=== PATIENT | female | born 1990 | race Caucasian/White ===

== ENCOUNTER 2023-02-24 15:47 | Outpatient (CLI) | payer BC | END 2023-02-24 15:48 | disposition home or self-care (01) | LOC: CSHLAB 15:47 | PROVIDERS: ATTEND Obstetrics & Gynecology | DX: Z01.818 Encounter for other preprocedural examination (principal) | CPT/HCPCS: 80048; 84703; 85027; 86850; 86900; 86901; 93005; 93010 ==

== ENCOUNTER 2023-02-28 09:55 | Day surgery (SDC) | payer BC ==
[2023-02-24 17:01] VITALS: BMI 23.9
[2023-02-24 17:41] LABS: BHCG - Serum Negative (NEGATIVE); Pregs Control Background? CLEAR/WHITE (CLR/WHITE); Pregs Control Bar Appear? YES (CONTROL BAR)
[2023-02-24 17:43] LABS: Hematocrit 43.1 % (34.9-44.5); Mean Corpuscular HGB CONC 32.5 g/dL (32.0-36.0); Mean Corpuscular Hemoglobin 29.6 pg (27.0-33.0); Mean Corpuscular Volume 91.1 fl (81.6-98.3); Mean Platelet Volume 9.9 fl (7.4-10.4); Platelet Count 326 10x3/uL (150-450); RBC Distribution Width 12.3 % (11.5-14.5); Red Blood Cell (RBC) Count 4.73 10x6/uL (3.90-5.03)
[2023-02-24 17:48] LABS: Anion Gap 14 mmol/L (10-20); BUN (Urea Nitrogen) 16 mg/dL (7.0-18.7); Calc. Creatinine Clearance 0 mL/min (70-130); Calcium 9.1 mg/dL (7.8-10.44); Carbon Dioxide 25 mmol/L (22-29); Chloride 102 mmol/L (98-107); Estimated GFR 105; Glucose 77 mg/dL (70-105); Potassium 3.9 mmol/L (3.5-5.1); Sodium 137 mmol/L (136-145)
[2023-02-28] MEDS ORDERED: CeleCOXIB 100 MG CAP ONE (10:06)
[2023-02-28] MEDS ORDERED: Lidocaine 2% PF 5 ML VIAL ONE ×2 (10:37→11:51)
[2023-02-28] MEDS ORDERED: PROPOFOL 20 ML ONE (10:37)
[2023-02-28] MEDS ORDERED: Ketorolac Tromethamine 30 MG/ML VIAL ONE (10:37)
[2023-02-28] MEDS ORDERED: fentaNYL 50 mcg/mL 1 mL Vial ONE (10:37)
[2023-02-28] MEDS ORDERED: Ondansetron PF 4 MG/2 ML Vial ONE ×2 (10:37→11:51)
[2023-02-28] MEDS ORDERED: Midazolam HCl 2 mg/2 ml Vial ONE (10:37)
[2023-02-28] MEDS ORDERED: Dexamethasone 4 mg/ml Vial ONE ×2 (10:37→11:51)
[2023-02-28] MEDS ORDERED: Methylergonovine 0.2 MG/ML VIAL ONE (11:40)
[2023-02-28] MEDS ORDERED: PROPOFOL 40 ML ONE (11:51)
[2023-02-28] MEDS ORDERED: Lidocaine 1% w/Epinephrine 1:100K 20 ML VIAL ONE (12:13)
[2023-02-28] MEDS ORDERED: Ferric Subsulfate 8 ML TOPICAL SOLN ONE (12:14)
== END 2023-02-28 13:45 | disposition home or self-care (01) ==
LOC: CSHSDC 09:55
PROVIDERS: ATTEND Obstetrics & Gynecology
PROC: 0UDB7ZZ Extraction of Endometrium, Via Natural or Artificial Opening (ICD-10-PCS; principal; 2023-02-28)
DX: N87.1 Moderate cervical dysplasia (principal); F41.9 Anxiety disorder, unspecified; G89.18 Other acute postprocedural pain; N87.9 Dysplasia of cervix uteri, unspecified; R87.810 Cervical high risk human papillomavirus (HPV) DNA test positive; Z88.8 Allergy status to other drugs, medicaments and biological substances; Z79.899 Other long term (current) drug therapy
CPT/HCPCS: 36415; 80048; 84703; 85027; 86850; 86900; 86901; 88305; 88307; J1100; J1885; J2001; J2210; J2250; J2405; J2704; J3010